=== PATIENT | male | born 1990 | race Caucasian/White ===

== ENCOUNTER 2019-05-22 13:38 | Emergency (ER) | payer OTHER, SELFPAY ==
[2019-05-22] VITALS (7 sets, daily range): BP systolic 146–160; BP diastolic 88–103; PULSE 97–126; RESP 11–16; TEMP 36.7; O2SAT 96–100
--- NOTE | 2019-05-22 13:44 | ED.GENADUL_ITS ---
Discharge Plan Disposition Patient Disposition: HOME Condition: Stable Discharge Details Chief Complaint: GenMedical Clinical Impression: Cough Primary Care Provider: Anahi,Local ED Provider: Adonay Sandoval Home Meds and New Rx's Prescriptions: No Action cyclobenzaprine 10 MG tablet DAILY PRNRF: 0 buspirone 5 MG tablet PO TID PRNRF: 0 trazodone 100 MG tablet 100 mg PO HS RF: 0 zolpidem 10 MG tablet 10 mg PO HS PRN PRNRF: 0 escitalopram oxalate [Lexapro] 20 MG tablet 20 mg PO BID RF: 0 Vyvanse 20 MG capsule 20 mg PO DAILY RF: 0 Discharge Instructions Instructions: Acute Cough (ED) Additional Instructions: At this time your symptoms are very concerning for coronavirus. Due to the increased likelihood of your symptoms being from coronavirus the CDC does recommend testing. It takes at least 72 hours for the test results to return. You will be contacted by [facility] staff when your results return. If you do not hear from them in 72 hours, please contact [facility]. Out of an abundance of precaution it is highly recommended that you self quarantine yourself for a total of 14 days or until symptom-free for greater than 24 to 48 hours. It would be prudent to wear a mask at all times, always wash her hands frequently, and follow-up closely with your primary care provider. It is recommended that you call your primary care provider prior to reassessment. If you are going to a health facility, please call/contact them before you arrive. At this time based on your current symptoms the CDC does not recommend admission, and there is no current clinical indication for your admission here at the hospital. However it is vitally important to monitor your symptoms closely, and if you notice any worsening of your symptoms, or any new symptoms such as worsening shortness of breath, difficulty breathing, persistent fever, worsening chills, chest pain, numbness, weakness, or fainting please call and then return immediately to the emergency department for reevaluation. Please call your primary care provider as soon as possible to make them aware of your current situation and for continued monitoring. As always, it was a pleasure participating in your medical care today. Stand Alone Forms: POSITIVE COVID-19/TO BE TESTED Medical Decision Making 28-year-old gentleman presents to the ER with subjective fevers and chills, dry cough, chest pressure, shortness of breath, general fatigue. Lung sounds are clear throughout except for mild diminished at bilateral bases, he is tachycardic in the 120s. He otherwise appears well. O2 sats are in the high 90s on room air. Given his profession with Covid positive patient, his presentation today, will initiate a full Covid work-up. Will give IV fluid, obtain CBC, CMP, d-dimer, ferritin, procalcitonin, chest x-ray, troponin. Will obtain EKG. This very well could simply be viral however I do believe that he is at high risk. Less likely ACS. Certainly cannot rule out PE although has no risk factors. Patient reports getting his flu vaccine this season. Patient is able to answer all my questions appropriately, absolutely no signs of confusion.. Patient has full range of motion of his neck, neck is nontender, no signs of nuchal rigidity. Heart rate down to 103 after the first liter of fluid. Will give a second liter of IV fluid. O2 sat is 100% on room air. Laboratory values reveal a white blood cell count of 9.49 hemoglobin 14.7 hematocrit 41.5 platelet count 262. Electrolytes are unremarkable. Lactate is minimally elevated at 1.8 tr ansaminases are normal. CRP is minimally elevated at 0.43, lactate dehydrogenase is 151, procalcitonin is less than 0.1. Given his presentation and duration of his symptoms, I do not believe that it is prudent to have the patient observed for 3 hours for a repeat troponin. Initial troponin was less than 0.05 Upon reevaluation heart rate is now 96, second liter of IV fluid is infusing. Discussed work-up with patient. He reports that he feels clinically well and believes that he can be safely discharged home at this time. I see no clear indication for admission and would like to set him up for Covid testing tomorrow. No clear indication for antibiotic therapy at this time The patient demonstartes some concerning red flags as noted by the CDC for coronavirus including cough, and/or shortness of breath. The patient looks notably clinically well, and does not demonstrate evidence of respiratory distress, significant or severe illness, or sepsis. Per CDC recommendations, coronavirus testing has been set up tomorrow as an outpatient through our tent system. Additionally, patient currently does not demonstrate symptoms indicative of admission or further observation here. Out of an abundance of precaution taking into account the current level of national concern, the patient's entire clinical picture, and CDC recommendations, the patient can be discharged home. Per CDC recommendations we will recommend a 14-day quarantine of the patient I have discussed good handwashing techniques, the importance of a mask, and we have also included CDC recommendations for home monitoring and isolation. I have extensively reviewed the treatment plan and discharge instructions with the patient. I have addressed all patient concerns at this time. The patient was made aware of what symptoms to monitor for that would warrant a return to the emergency department. I also discussed the importance of calling the patients's PCP, as well as the ED for any concern on prior to return. Discussed the plan with the patient, they demonstrate verbal understanding and agreement with our assessment and plan at this time. Medical Records Medical records reviewed: Yes I reviewed the patient's medical records. Imaging Data Radiologic Study: Attestation: I personally reviewed and interpreted this imaging study as follows: Imaging: X-Ray My impression: Chest negative Radiologist's impression: Chest negative Lab Data Lab results reviewed: Yes I reviewed the patient's lab results. Lab results narrative: Laboratory Tests Range/Units 05/22/19 05/22/19 05/22/19 14:15 14:15 14:15 WBC (4.4-10.8) k/cumm 9.49 RBC (4.50-6.00) m/cumm 4.64 Hgb (13.5-17.5) g/dL 14.7 Hct (40.0-50.0) % 41.5 MCV (80-95) fL 89.4 MCH (27.0-33.0) pg 31.7 MCHC (32.0-36.0) g/dL 35.4 RDW (11.8-14.1) % 12.2 Plt Count (130-400) x1000/uL 262 MPV (8.0-11.0) fL 10.9 Immature Gran % % 0.3 Neutrophils % 63.1 Lymphocytes % 29.3 Monocytes % 6.4 Eosinophils % 0.7 Basophils % 0.2 Absolute Neutrophils (1.2-6.7) k/cumm 5.98 Absolute Lymphocytes (1.2-3.4) k/cumm 2.78 Absolute Monocytes (0.11-0.7) k/cumm 0.61 Absolute Eosinophils (0.0-0.7) k/cumm 0.07 Absolute Basophils (0.0-0.2) k/cumm 0.02 D-Dimer (<500) ng/mlFEU 301 Sodium (136-145) mmol/L 140 Potassium (3.5-5.1) mmol/L 3.8 Chloride (98-107) mmol/L 104 Carbon Dioxide (21.0-32.0) mmol/L 23.3 Anion Gap (3-11) mmol/L 12.7 H BUN (7-18) mg/dL 11 Creatinine (0.70-1.30) mg/dL 0.80 Estimated GFR/1.73 m2 (mL/min/1.73m2) >= 60.00 Glucose (74-106) mg/dL 90 Lactate (0.6-1.4) mmol/L Calcium (8.5-10.1) mg/dL 8.9 Ferritin (26-388) ng/mL 170 Total Bilirubin (0.2-1.0) mg/dL 0.4 AST (15-37) U/L 19 ALT (16-63) U/L 34 Alkaline Phosphatase (46-116) U/L 71 Lactate Dehydrogenase (85-227) U/L 151 Troponin I (<0.06) ng/Ml C-Reactive Protein (0.0-0.3) mg/dL 0.43 H Total Protein (6.4-8.2) g/dL 7.7 Albumin (3.4-5.0) g/dL 3.9 Procalcitonin ng/mL Range/Units 05/22/19 05/22/19 14:15 14:15 WBC (4.4-10.8) k/cumm RBC (4.50-6.00) m/cumm Hgb (13.5-17.5) g/dL Hct (40.0-50.0) % MCV (80-95) fL MCH (27.0-33.0) pg MCHC (32.0-36.0) g/dL RDW (11.8-14.1) % Plt Count (130-400) x1000/uL MPV (8.0-11.0) fL Immature Gran % % Neutrophils % Lymphocytes % Monocytes % Eosinophils % Basophils % Absolute Neutrophils (1.2-6.7) k/cumm Absolute Lymphocytes (1.2-3.4) k/cumm Absolute Monocytes (0.11-0.7) k/cumm Absolute Eosinophils (0.0-0.7) k/cumm Absolute Basophils (0.0-0.2) k/cumm D-Dimer (<500) ng/mlFEU Sodium (136-145) mmol/L Potassium (3.5-5.1) mmol/L Chloride (98-107) mmol/L Carbon Dioxide (21.0-32.0) mmol/L Anion Gap (3-11) mmol/L BUN (7-18) mg/dL Creatinine (0.70-1.30) mg/dL Estimated GFR/1.73 m2 (mL/min/1.73m2) Glucose (74-106) mg/dL Lactate (0.6-1.4) mmol/L 1.8 H Calcium (8.5-10.1) mg/dL Ferritin (26-388) ng/mL Total Bilirubin (0.2-1.0) mg/dL AST (15-37) U/L ALT (16-63) U/L Alkaline Phosphatase (46-116) U/L Lactate Dehydrogenase (85-227) U/L Troponin I (<0.06) ng/Ml < 0.05 C-Reactive Protein (0.0-0.3) mg/dL Total Protein (6.4-8.2) g/dL Albumin (3.4-5.0) g/dL Procalcitonin ng/mL < 0.1 ECG Data Attestation: I personally reviewed and interpreted this ECG (s) as follows: Interpretation: EKG performed at 1358, interpreted and reviewed by end with Dr. Solomon. Sinus tachycardia, ventricular rate of 135. No acute ST elevation segments. HPI General Mode of arrival: ambulatory . Date/Time Provider Initiated Documentation: 05/22/19 13:44 . Limitations to Documentation: no limitations . Information obtained by: patient . HPI Narrative: This is a 28-year-old male with history of chronic back pain, PTSD, TBI, alcohol dependence, current smoker approximately 1.5 packs/day. 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 He reports last week subjective fever and chills but did not otherwise feel ill. 4 days ago reports 5 out of 10 mild headache, subjective fever and chills, dry cough, chest pressure, shortness of breath, mild diarrhea, general fatigue, decreased appetite and a scratchy throat. He has not taken any bidf-xva-uajfzco medications for his symptoms. He tells me that he occasionally gets migraines but this does not feel like a migraine, actually feels less severe. Denies any body aches or neck pain. Patient reports that he occasionally experiences confusion secondary to his previous TBI, denies any real confusion to me at this time. Patient was sent here from his [place] telehealth appointment for further evaluation. Patient reports that he did have an albuterol inhaler prescribed by his primary care provider that he has to go fill after this evaluation Related Data Home Medications Medication Instructions Recorded Confirmed buspirone PO TID PRN 07/24/15 cyclobenzaprine DAILY PRN 07/24/15 escitalopram oxalate [Lexapro] 20 mg PO BID 07/24/15 05/22/19 lisdexamfetamine [Vyvanse] 20 mg PO DAILY 07/24/15 05/22/19 trazodone 100 mg PO HS 07/24/15 05/22/19 zolpidem 10 mg PO HS PRN PRN 07/24/15 05/22/19 Allergies Allergy/AdvReac Type Severity Reaction Status Date / Time No Known Allergies Allergy Unverified 05/22/19 13:53 Review of Systems Constitutional Constitutional: Reports fatigue, Reports fever(s), Reports headache(s) and Denies weakness Eyes Eyes: Denies eye discharge ENT Ears, Nose, Mouth, and Throat: Denies otalgia, Reports headache(s) and Denies sore throat Cardiovascular Cardiovascular: Reports chest pain (With coughing or deep breathing) and Reports dyspnea Respiratory Respiratory: Reports cough (Cough is dry) and Reports dyspnea Gastrointestinal Gastrointestinal: Denies abdominal pain, Reports diarrhea, Reports nausea and Denies vomiting Genitourinary Genitourinary: Denies dysuria Musculoskeletal Musculoskeletal: Reports back pain (Chronic in nature), Denies myalgias, Denies numbness and Denies tingling Integumentary/Breasts Skin/Breast: Denies rash Neurologic Neurologic: Reports headache(s), Denies numbness, Denies tingling and Denies weakness Endocrine Endocrine: Reports fatigue [facility] Social History Smoking/Tobacco Use Status: Current every day Tobacco Type: cigarettes Alcohol Intake: current Alcohol Intake frequency: a few times a week Drug use: Never Substance use type: does not use Do you feel safe at home: Yes Do you feel safe in your relationship?: Yes Exam Const General: cooperative, healthy appearing, comfortable and no acute distress Orientation: alert, awake and oriented x3 HENMT Head: normal to inspection, no palpable skull fracture, normocephalic and atraumatic Ears: external ears normal, TM's normal bilaterally and EAC's normal General nose exam: no nasal discharge and nasal discharge clear Face and sinus: normal facial exam Mouth: moist mucous membranes Throat: posterior oropharynx abnormal erythema (Minimal) Eyes General: appearance normal, both eyes and all related structures Alignment and Position: alignment normal Periorbital: periorbital findings normal Eyelids: eyelids normal Conjunctivae: conjunctivae normal Sclera: sclerae normal Cornea: corneas normal Pupils: PERRL EOM: EOM intact bilaterally Direct ophthalmoscopy: normal light reflex Neck Neck: normal visual inspection, full ROM, no lymphadenopathy, no meningeal signs, trachea midline and supple Chest Chest: normal inspection of the chest Resp Effort & Inspection: normal respiratory effort and able to speak in complete sentences Auscultation: clear to auscultation bilaterally and diminished lung sounds bilaterally (Basis) Cardio Rate: tachycardic (Rate in the 120s) Rhythm: regular rhythm GI Inspection: normal to inspection Palpation: soft and nontender Auscultation: normal bowel sounds Back/Spine/Pelvis Back: No back tenderness Skin General skin exam: no rashes or lesions noted Neuro General: patient alert, patient awake, patient oriented x3, moves all extremities and no focal motor deficits Cranial Nerves: CN's II-XI intact bilaterally Cognition: normal cognition Speech: speech normal Gait: normal gait Motor: muscle tone normal throughout and strength 5/5 throughout Sensory Exam: no sensory deficits noted Extrem General: normal to inspection, full ROM, capillary refill normal, no pedal edema and no calf tenderness Psych Appearance: grossly normal Mental Status: mental status grossly normal
--- NOTE | 2019-05-22 14:00 | DI.RAD_ITS ---
EXAM: XR PORTABLE CHEST AP CLINICAL HISTORY: cough/sob TECHNIQUE: 2D digital imaging was performed. COMPARISON: No exams were available for comparison FINDINGS: MEDIASTINUM: Normal. HEART: Normal. PULMONARY VASCULATURE: Normal. LUNGS: Clear. PLEURAL SPACE: No pleural effusion or pneumothorax. BONE:Normal. OTHER FINDINGS:Normal. IMPRESSION: No acute pulmonary findings. DATA REPOSITORY: RADIATION DOSE DELIVERED:
[2019-05-22] MEDS: Normal Saline 1,000 ML 1000 ML IV (14:12)
[2019-05-22] MEDS: Normal Saline Flush 10 ML SYR IVP (14:12)
[2019-05-22 14:37] LABS: Lactate 1.8 mmol/L (0.6-1.4)
[2019-05-22 14:39] LABS: Abs Immature Grans 0.03 k/cumm (0.0-0.09); Absolute Basophil Count 0.02 k/cumm (0.0-0.2); Absolute Eosinophil Count 0.07 k/cumm (0.0-0.7); Absolute Lymphocyte Count 2.78 k/cumm (1.2-3.4); Absolute Monocyte Count 0.61 k/cumm (0.11-0.7); Absolute Neutrophil Count 5.98 k/cumm (1.2-6.7); Basophils % 0.2; Eosinophils % 0.7; HCT 41.5 % (40.0-50.0); HGB 14.7 g/dL (13.5-17.5); Immature Grans % 0.3 %; Lymphocytes % 29.3; Mean Corp. HGB Concentration 35.4 g/dL (32.0-36.0); Mean Corpuscular Hemoglobin 31.7 pg (27.0-33.0); Mean Corpuscular Volume 89.4 fL (80-95); Mean Platelet Volume 10.9 fL (8.0-11.0); Monocytes % 6.4; Neutrophils % 63.1; Platelet Count 262 x1000/uL (130-400); RBC 4.64 m/cumm (4.50-6.00); RBC Distribution Width 12.2 % (11.8-14.1); White Blood Cell Count 9.49 k/cumm (4.4-10.8)
[2019-05-22 14:55] LABS: ALT 34 U/L (16-63); AST 19 U/L (15-37); Albumin 3.9 g/dL (3.4-5.0); Alkaline Phosphatase 71 U/L (46-116); Anion Gap 12.7 mmol/L (3-11); BUN 11 mg/dL (7-18); Bilirubin, Total 0.4 mg/dL (0.2-1.0); C-Reactive Protein 0.43 mg/dL (0.0-0.3); CO2 23.3 mmol/L (21.0-32.0); Calcium 8.9 mg/dL (8.5-10.1); Chloride 104 mmol/L (98-107); Glucose 90 mg/dL (74-106); LDH 151 U/L (85-227); Potassium 3.8 mmol/L (3.5-5.1); Sodium 140 mmol/L (136-145); Total Protein 7.7 g/dL (6.4-8.2)
[2019-05-22 14:58] LABS: Troponin I < 0.05 ng/Ml (<0.06)
[2019-05-22 15:12] LABS: D-Dimer 301 ng/mlFEU (<500)
[2019-05-22 15:13] LABS: Procalcitonin < 0.1 ng/mL
[2019-05-22 15:20] LABS: Ferritin 170 ng/mL (26-388)
== END 2019-05-22 15:57 | disposition home or self-care (01) ==
PROVIDERS: Emergency Provider Physician Assistant
DX: R05 Cough (principal); Z20.828 Contact with and (suspected) exposure to other viral communicable diseases
CPT/HCPCS: 36416; 80053; 82962; 84145; 93005; 96360; 96361; 99284; 71045; 82728; 83605; 83615; 84484; 85025; 85379; 86140; 93010

== ENCOUNTER 2019-05-23 08:45 | Outpatient (CLI) | payer OTHER, SELFPAY ==
[2019-05-26 09:02] LABS: COVID-19 RT-PCR Result Negative (Negative)
== END 2019-05-23 09:05 ==
PROVIDERS: Visit Provider Physician Assistant
DX: Z11.59 Encounter for screening for other viral diseases (principal)
CPT/HCPCS: U0003

== ENCOUNTER 2019-09-20 01:28 | Emergency (ER) | payer OTHER, SELFPAY ==
--- NOTE | 2019-09-20 01:32 | W.ED.GENAD ---
Discharge Plan Disposition Patient Disposition: LEFT WITHOUT BEING SEEN Discharge Details Chief Complaint: PsychEval Primary Care Provider: Anahi,Local ED Provider: Rick Robert Discharge Data Discharge Date/Time-TO BE ENTERED AT DEPARTURE: 09/20/19 02:10 Medical Decision Making Given the patient's presentation to ED once he decided he wanted to leave without evaluation I was still obliged to evaluate. He has had suicidal thoughts for some time. He is not actively suicidal. He is a heavy drinker. At this time he is clinically sober. His speech is normal. His thought processes are normal. His gait is normal. [facility] to [facility]. He does not wish to have more bills/debt from visits to this hospital as well as [facility]. Clearly has insight and judgment and future thought processing. He does have capacity and he exhibits no intent to harm himself or anyone else. He therefore is allowed to leave without being seen. HPI General Mode of arrival: ambulatory. Date/Time Provider Initiated Documentation: 09/20/19 01:32. Limitations to Documentation: no limitations. Information obtained by: patient and RN notes reviewed. HPI Narrative: Patient presented to the ED after being booked for DUI by police. After being processed he was not sure what he wanted to do. He was talking to a friend on the phone. Police brought him up. His request. He did check in but in triage after talking to the nurse decided he did not want to be seen and would [facility]. Related Data Home Medications Medication Instructions Recorded Confirmed buspirone PO TID PRN 07/24/15 cyclobenzaprine DAILY PRN 07/24/15 escitalopram oxalate [Lexapro] 20 mg PO BID 07/24/15 05/22/19 lisdexamfetamine [Vyvanse] 20 mg PO DAILY 07/24/15 05/22/19 trazodone 100 mg PO HS 07/24/15 05/22/19 zolpidem 10 mg PO HS PRN PRN 07/24/15 05/22/19 Allergies Allergy/AdvReac Type Severity Reaction Status Date / Time No Known Allergies Allergy Unverified 09/20/19 01:38 General ZANE: 3 Review of Systems Narrative: Not obtained [facility] Medical History Alcoholism (Chronic) PTSD (post-traumatic stress disorder) (Chronic) Social History Smoking/Tobacco Use Status: Current every day Tobacco Type: cigarettes Alcohol Intake: current Alcohol Intake frequency: 3 or more drinks per day Drug use: Never Substance use type: does not use Details: admits to 10-12 16 oz beers per day Do you feel safe at home: Yes Do you feel safe in your relationship?: Yes Exam Const General: cooperative and no acute distress Orientation: alert and oriented x3 Neuro General: patient oriented x3, gait normal and no focal motor deficits Cognition: normal cognition Speech: speech normal Psych Appearance: well kempt Mental Status: mental status grossly normal Speech and Movement: speech and movement normal Mood: congruent mood Affect: normal affect Attitude: cooperative Thought Process: normal Thought Content: normal Insight: insight good Judgment: judgment good
[2019-09-20 01:34] VITALS: BP 150/99; PULSE 108; RESP 18; TEMP 36.2; O2SAT 96
--- NOTE | 2019-09-20 01:39 | NUR.NOTE ---
Nursing Note: pt states he [facility] all [facility] without [facility] approx 3 months ago they made me more suicidal
[2019-09-20 02:05] VITALS: BP 150/99; PULSE 108; RESP 18; TEMP 36.2; O2SAT 96
== END 2019-09-20 02:10 | disposition left before discharge ==
LOC: ER 02:06
PROVIDERS: Emergency Provider Emergency Medicine
DX: Z53.21 Procedure and treatment not carried out due to patient leaving prior to being seen by health care provider (principal)

== ENCOUNTER 2022-10-04 13:27 | Emergency (ER) | payer OTHER, SELFPAY ==
--- NOTE | 2022-10-04 13:30 | DI.CT_ITS ---
Exam(s) CT ABDOMEN PELVIS W EXAM: CT ABDOMEN PELVIS W CLINICAL HISTORY: llq abdominal pain. TECHNIQUE: Imaging Protocol: Axial computed tomography images with coronal and sagittal reformatted images were created and reviewed CONTRAST MATERIAL: Intravenous: Omnipaque 350 Contrast volume:100 ml Oral: no COMPARISON: No exams were available for comparison FINDINGS: ABDOMEN: Lung Bases: Normal where visualized. Liver: Normal density. No measurable mass. Gallbladder and biliary tract: No radiodense calculus or dilation. Pancreas: Normal density, no abnormal calcifications or inflammatory process. Spleen: Normal. Kidneys: Normal size, contour and axis. No radiodense stones or obstructive uropathy. No suspicious m asses seen. Adrenal glands: No masses seen. Vasculature: Abdominal aorta non-dilated. Soft tissues: Unremarkable. PELVIS: Bladder: No gross wall thickening. No calculi.No focal mass. Bowel: No obstruction. Descending colon is nearly free of stool. There is a question of mild wall thickening which could indicate colitis. Remainder of the colon is unremarkable. No small bowel wal l thickening. Appendix normal. Peritoneal cavity: No ascites, collection or mesenteric inflammatory response. Bones: Unremarkable for age. Reproductive organs: Within normal limits. Lymph nodes: Unremarkable. IMPRESSION:: Mild wall thickening of the descending colon could indicate colitis. Findings were called to Dr. Solomon of the emergency department. RADIATION DOSE DELIVERED: 832.83mGy.cm Total DLP DATA REPOSITORY: All CT scans at this facility are submitted to the National Radiology Data Registry (NRDR) Dose Index Registry (DIR) with the [employer] ([employer]). RADIATION OPTIMIZATION: All CT scans at this facility use at least one of these dose optimization te chniques: automated exposure control; mA and/or kV adjustment per patient size (includes targeted exa ms where dose is matched to clinical indication); or iterative reconstruction.
[2022-10-04 13:31] VITALS: BP 148/93; PULSE 84; RESP 20; TEMP 37.3; O2SAT 99
--- NOTE | 2022-10-04 13:38 | ED.GENADUL_ITS ---
Discharge Plan Disposition Patient Disposition: Home Condition: Stable Discharge Details Clinical Impression: Abdominal pain, LLQ, Bloody stools Primary Care Provider: Renée Christian ED Provider: Hayder Solomon Home Meds and New Rx's Prescriptions: Continued cyclobenzaprine 10 MG tablet DAILY PRN Patient Comments: pt states does not take buspirone 5 MG tablet PO TID PRN Patient Comments: pt states does not take trazodone 100 MG tablet 100 mg PO HS Patient Comments: pt states does not take zolpidem 10 MG tablet 10 mg PO HS PRN PRN Patient Comments: pt states does not take escitalopram oxalate [Lexapro] 20 MG tablet 20 mg PO BID Patient Comments: pt states does not take Vyvanse 20 MG capsule 20 mg PO DAILY Patient Comments: pt states does not take Discharge Instructions Additional Instructions: Your cat scan and lab work did not show concerning findings at this time other then mild inflammation of your ascending colon I have placed you on our follow up list to see the general surgeon's to discuss having a colonoscopy if you feel more ill, have severe abdominal pain or new symptoms such as difficulty breathing return to the emergency department Medical Decision Making 31 yo male with no chronic medical problems and no prior abdominal surgeries comes in with 1 week of intermittent bloody stools and llq abdominal tenderness. Denies fevers, chills, chest pain, dyspnea, vomiting. Has no pain when he wipes at the rectum. Arrives stable and appears well in no distress. CAox4 with clear speech. He has decision making capacity and declines rectal exam at this time. Concern for diverticulitis, will obtain cbc, cmp, lipase and ct abd/pelvis to further evaluate labs unremarkable, ct shows possible colitis of ascending colon. Pt still declines rectal exam, stable vitals. He has had this happen a year ago as well, will have him f/u with general surgery mariely to discuss colonscopy, return precautions given Differential Diagnosis Differential Diagnosis: diverticulitis, colitis, hemorrhoids Imaging Data Radiologic Study: Attestation: I personally reviewed and interpreted this imaging study as follows: Imaging: CT Scan Radiologist's impression: Patient Name: Cong Oconnor Unit #: [id number] Loc: ER ? Ordering Provider:? Hayder Solomon M.D. Status: REG ER ? Primary Care Provider: Renée Christian Date of Exam: 10/04/22 Sex: M ? : 1990 Age: 31 ? Exam(s) a CT:CT abdomen & pelvis w Exam(s) CT ABDOMEN ? PELVIS W EXAM:? CT ABDOMEN ? PELVIS W CLINICAL HISTORY: ? llq abdominal pain.? TECHNIQUE:? Imaging Protocol: Axial computed tomography images with coronal and sagittal reformatted images were created and reviewed CONTRAST MATERIAL:? Intravenous: Omnipaque 350 Contrast volume:100 ml Oral:? no COMPARISON:? No exams were available for comparison FINDINGS: ABDOMEN: Lung Bases: Normal where visualized. Liver: Normal density. No measurable mass. Gallbladder and biliary tract: No radiodense calculus or dilation.? Pancreas: Normal density, no abnormal calcifications or inflammatory process. Spleen: Normal. Kidneys: Normal size, contour and axis. No radiodense stones or obstructive uropathy. No suspicious masses seen. Adrenal glands: No masses seen. Vasculature: Abdominal aorta non-dilated.? Soft tissues: Unremarkable. PELVIS:? Bladder:? No gross wall thickening. No calculi.No focal mass. Bowel: No obstruction. ? Descending colon is nearly free of stool.? There is a question of mild wall thickening which could indicate colitis.? Remainder of the colon is unremarkable.? No small bowel wall thickening.? Appendix normal. Peritoneal cavity: No ascites, collection or mesenteric inflammatory response. Bones: Unremarkable for age.? Reproductive organs: Within normal limits. Lymph nodes: Unremarkable.? IMPRESSION::? Mild wall thickening of the descending colon could indicate colitis HPI General Mode of arrival: ambulatory . Date/Time Provider Initiated Documentation: 10/04/22 13:28 . Limitations to Documentation: no limitations . Information obtained by: patient . History of Present Illness 31 year old M presents to the emergency department with the chief complaint of bloody stools, described as moderate, Patient started experiencing this week(s) (1) and it has been intermittent. No relieving factors improve symptom(s), No exacerbating factors reported . Patient notes denies chest pain, fever/chills and shortness of breath. Patient did receive the following treatments prior to arrival, none Related Data Home Medications Medication Instructions Recorded Confirmed buspirone 5 mg tablet PO TID PRN 07/24/15 cyclobenzaprine 10 mg tablet DAILY PRN 07/24/15 escitalopram oxalate 20 mg tablet 20 mg PO BID 07/24/15 05/22/19 (Lexapro) lisdexamfetamine 20 mg capsule 20 mg PO DAILY 07/24/15 05/22/19 (Vyvanse) trazodone 100 mg tablet 100 mg PO HS 07/24/15 05/22/19 zolpidem 10 mg tablet 10 mg PO HS PRN PRN 07/24/15 05/22/19 Allergies Allergy/AdvReac Type Severity Reaction Status Date / Time No Known Allergies Allergy Unverified 10/04/22 13:33 General Stated Complaint: Abd Prob ZANE: 3 Review of Systems All systems reviewed & are unremarkable except as noted in HPI and below Constitutional Constitutional: Denies chills, Denies fever(s) and Denies weakness Cardiovascular Cardiovascular: Denies chest pain and Denies dyspnea Respiratory Respiratory: Denies cough and Denies dyspnea Gastrointestinal Gastrointestinal: Reports abdominal pain, Denies nausea and Denies vomiting Musculoskeletal Musculoskeletal: Denies joint swelling Neurologic Neurologic: Denies weakness PFSH All Active Problems (Updated 10/04/22 @ 14:32 by Hayder Solomon MD) Abdominal pain, LLQ (Acute) Bloody stools (Acute) Alcoholism (Chronic) PTSD (post-traumatic stress disorder) (Chronic) Social History Smoking/Tobacco Use Status: Current every day Tobacco Type: cigarettes Smoking risk assessment performed?: Yes Alcohol Intake: current Alcohol Intake frequency: 3 or more drinks per day Drug use: Never Substance use type: does not use Details: admits to 10-12 16 oz beers per day Do you feel safe at home: Yes Do you feel safe in your relationship?: Yes Exam Const General: no acute distress Orientation: alert HENMT Head: normal to inspection Ears: external ears normal General nose exam: external nose normal Mouth: moist mucous membranes Eyes General: appearance normal, both eyes and all related structures Neck Neck: normal visual inspection Resp Effort & Inspection: normal respiratory effort and able to speak in complete sentences Cardio Rate: regular rate GI Palpation: soft, not firm, no guarding and tender Skin General skin exam: no rashes or lesions noted Neuro General: patient alert and patient oriented x3 Extrem General: normal to inspection Psych Mental Status: mental status grossly normal Course Vital Signs Vital signs: Vital Signs Temperature 37.3 C 10/04/22 13:31 Pulse 84 10/04/22 13:31 Respiratory Rate 20 10/04/22 13:31 Blood Pressure 148/93 H 10/04/22 13:31 Pulse Oximetry 99 10/04/22 13:31 Temperature 37.3 C 10/04/22 13:31 Temperature Source Oral 10/04/22 13:31 Pulse 84 10/04/22 13:31 Respiratory Rate 20 10/04/22 13:31 Blood Pressure 148/93 H 10/04/22 13:31 Blood Pressure Position Sitting 10/04/22 13:31 Pulse Oximetry 99 10/04/22 13:31 Oxygen Delivery Method Room Air 10/04/22 13:31 Oxygen Flow Rate 0 10/04/22 13:31 Pain Level 0 10/04/22 13:31
[2022-10-04 13:50] LABS: Abs Immature Grans 0.02 10^3/uL (0.0-0.06); Absolute Basophil Count 0.03 10^3/uL (0.0-0.2); Absolute Eosinophil Count 0.16 10^3/uL (0.0-0.7); Absolute Lymphocyte Count 3.54 10^3/uL (1.2-3.4); Absolute Monocyte Count 0.55 10^3/uL (0.1-0.8); Basophils % 0.4; Eosinophils % 2.1; HCT 38.7 % (40.0-50.0); HGB 13.5 g/dL (13.5-17.5); Immature Grans % 0.3; Lymphocytes % 46.6; MCH 31.2 pg (27.0-33.0); MCHC 34.9 % (32.0-36.0); MCV 89 fL (80-95); MPV 9.4 fL (8.0-11.0); Monocytes % 7.2; Neutrophils % 43.4; Platelet Count 226 10^3/uL (130-400); RBC 4.33 10^6/uL (4.36-5.78); RDW 12.2 % (11.8-14.1); RDW-SD 39.8 fL
[2022-10-04] MEDS: Omnipaque 350 MG/ML 50 ML BTL 100 ML IJ (13:58)
[2022-10-04] MEDS: Normal Saline Flush 10 ML SYR IVP (13:58)
[2022-10-04] MEDS: Normal Saline - Diluent 50 ML VIAL IJ (13:58)
[2022-10-04 14:07] LABS: ALT 27 U/L (16-63); AST 22 U/L (15-37); Albumin 4.2 g/dL (3.4-5.0); Alkaline Phosphatase 75 U/L (46-116); Anion Gap 11.5 mmol/L (3-11); BUN 12 mg/dL (7-18); Bilirubin, Total 0.6 mg/dL (0.2-1.0); CO2 26.5 mmol/L (21.0-32.0); CREATININE 1.3 mg/dL (0.70-1.30); Calcium 9.2 mg/dL (8.5-10.1); Chloride 102 mmol/L (98-107); Estimated GFR 75.32 (mL/min/1.73m2); Glucose 115 mg/dL (74-106); Lipase 54 U/L (16-77); Potassium 3.7 mmol/L (3.5-5.1); Sodium 140 mmol/L (136-145); Total Protein 7.7 g/dL (6.4-8.2)
[2022-10-04 14:36] LABS: Bilirubin Negative (Negative); Blood Negative (Negative); Clarity Clear (Clear); Glucose Negative (Negative); Ketones Trace mg/dL (Negative); Leukocyte Esterase Negative (Negative); Nitrite Negative (Negative); Specific Gravity 1.025 (1.005-1.025); Urobilinogen 0.2 mg/dL (Up to 0.2)
[2022-10-04 14:44] VITALS: BP 152/80; PULSE 68; RESP 20; O2SAT 96
--- NOTE | 2022-10-04 14:58 | NUR.NOTE ---
Nursing Note: PT needs follow up in one week with general surgery for possible colonoscopy for bloody stools. Evelia, ED
== END 2022-10-04 14:47 | disposition home or self-care (01) ==
PROVIDERS: Emergency Provider Emergency Medicine
DX: K92.1 Melena (principal); R10.32 Left lower quadrant pain; R93.3 Abnormal findings on diagnostic imaging of other parts of digestive tract
CPT/HCPCS: 80053; 83690; 99285; 74177; 81003; 85025; 99284; Q9967

== ENCOUNTER → 2024-12-26 13:56 | Outpatient (CLI) | payer OTHER, SELFPAY ==
--- NOTE | 2024-12-26 14:16 | DI.RAD_ITS ---
Exam(s) XR KNEE LT 3V AP,LAT,ADRIA EXAM: XR KNEE LT 3V AP,LAT,ADRIA CLINICAL HISTORY: LT KNEE PAIN,M25.562. TECHNIQUE: 2D digital imaging was performed. Three views. COMPARISON: No exams were available for comparison FINDINGS: BONES: No acute fracture is present. No bony destructive lesion is seen. JOINTS: The knee is normally aligned. No joint effusion is seen. SOFT TISSUE: Normal. IMPRESSION: Normal radiographs of the left knee. DATA REPOSITORY: RADIATION DOSE DELIVERED:
== END ==
PROVIDERS: Visit Provider Physician Assistant Medical
DX: M25.562 Pain in left knee (principal)
CPT/HCPCS: 73562